=== PATIENT | female | born 1950 | race African-American/Black ===

== ENCOUNTER 2018-05-26 09:28 | Inpatient (IN) | payer OTHER, MEDICAID ==
[~2018-05-26] VITALS: Ht 167.6 cm; Wt 74.8 kg
[~2018-05-26 09:28] MED LIST: ALBU8.5H8 INH; DILT240C91 PO; FERR-57 PO; FLUT1DIS3 INH; GUAI5SYR PO; HYDR-4100 PO; IBUP-1969 PO; LEVO500T20 PO; MONT10TA22; OMEG100037 PO; OMEP40CA33 PO; PRED1TAB PO; TRAZ-123 PO; [UNRECOGNIZED DRUG - OTHER] PO
[2018-05-26 09:33] VITALS: BP_SYST 157
[2018-05-26] MEDS ORDERED: IPRATROPIUM BROM 0.5 MG/2.5 ML VIAL.NEB (ATROVENT) INH ONE (09:45)
[2018-05-26] MEDS ORDERED: LORazepam 2 MG/ML VIAL (FOR ER USE) IVP ONE (09:45)
[2018-05-26] MEDS ORDERED: ALBUTEROL SULFATE 0.083% 2.5 MG/3 ML VIAL.NEB INH ONE (09:45)
[2018-05-26] MEDS ORDERED: methylPREDNISolone SOD SUCC/PF 62.5 MG/ML VIAL IVP ONE (09:45)
[2018-05-26 10:13] LABS: BASOPHILS % (AUTO) 0.6 % (0.0-2.0); EOSINOPHILS # (AUTO) 0.3 K/uL (0.0-0.4); EOSINOPHILS % (AUTO) 3.6 % (0.0-4.0); HEMATOCRIT 41.5 % (36-48); HEMOGLOBIN 14.1 g/dL (12.0-16.0); LYMPHOCYTES # (AUTO) 1.8 K/uL (1.0-5.5); LYMPHOCYTES % (AUTO) 25.7 % (20.5-51.5); MEAN CORPUSCULAR HEMOGLOBIN 31 pg (27-31); MEAN CORPUSCULAR HGB CONC 34 % (32-36); MEAN CORPUSCULAR VOLUME 91 fL (79.0-98.0); MONOCYTES # (AUTO) 0.5 K/uL (0.0-1.0); MONOCYTES % (AUTO) 6.9 % (1.7-9.3); NEUTROPHILS # (AUTO) 4.6 K/uL (1.8-7.7); NEUTROPHILS % (AUTO) 63.2 % (40.0-70.0); PLATELET COUNT (AUTO) 460 K/uL (130-430); RED BLOOD CELL COUNT(AUTO) 4.55 MIL/uL (4.2-6.2); RED CELL DISTRIBUTION WIDTH 11.9 % (9.0-15.0); WHITE BLOOD COUNT (AUTO) 7.2 K/uL (4.8-10.8)
[2018-05-26 10:28] LABS: CALCIUM 9.4 mg/dL (8.4-11.0); CREATININE 0.63 mg/dL (0.55-1.30); POTASSIUM 3.3 mmol/L (3.5-5.1)
[2018-05-26 10:33] LABS: ALBUMIN 3.6 g/dL (3.4-4.8); TOTAL BILIRUBIN 0.5 mg/dL (0.0-1.0)
[2018-05-26] MEDS ORDERED: KETOROLAC TROMETHAMINE 15 MG VIAL IVP ONE (11:15)
[2018-05-26] MEDS ORDERED: cefTRIAXone 1 GM in D5W 50 ML IV ONE ×2 (11:15→13:00)
[2018-05-26] MEDS ORDERED: cefTRIAXone 1 GM VIAL ONE (11:33)
[2018-05-26] MEDS ORDERED: GLEC1TAB PO (11:42)
[2018-05-26 11:44] VITALS: BP_SYST 139
[2018-05-26] MEDS ORDERED: ALBUTEROL SULFATE 0.083% 2.5 MG/3 ML VIAL.NEB INH PRN (12:00)
[2018-05-26] MEDS ORDERED: IPRATROPIUM BROM 0.5 MG/2.5 ML VIAL.NEB (ATROVENT) INH PRN (12:00)
[2018-05-26 12:46] VITALS: BP_SYST 131
[2018-05-26] MEDS: IPRATROPIUM BROM 0.5 MG/2.5 ML VIAL.NEB (ATROVENT) INH SCH ×2 (13:25→19:27)
[2018-05-26] MEDS: ALBUTEROL SULFATE 0.083% 2.5 MG/3 ML VIAL.NEB INH SCH ×2 (13:25→19:27)
[2018-05-26] MEDS ORDERED: AZITHROMYCIN 500 MG in NS 250 ML IV ONE (14:00)
[2018-05-26] MEDS ORDERED: ACETAMINOPHEN 325 MG TABLET PO PRN (14:15)
[2018-05-26] MEDS: methylPREDNISolone SOD SUCC/PF 62.5 MG/ML VIAL IVP SCH ×2 (14:44→21:54)
[2018-05-26 16:55] VITALS: BP_SYST 132
[2018-05-26] MEDS ORDERED: ONDANSETRON HCL 4 MG/2 ML VIAL IVP PRN (19:30)
[2018-05-26] MEDS ORDERED: TEMAZEPAM 15 MG CAPSULE PO PRN (21:00)
[2018-05-26] MEDS: HYDROcodone/ACETAMIN 5-325 MG TAB (NORCO/ VICODIN) PO PRN (21:55)
[2018-05-26] MEDS: guaiFENesin/DEXTROMETHORPHAN 10 ML UDC PO PRN (21:56)
[2018-05-27 00:19] VITALS: BP_SYST 134
[2018-05-27] MEDS: IPRATROPIUM BROM 0.5 MG/2.5 ML VIAL.NEB (ATROVENT) INH SCH ×4 (01:03→20:01)
[2018-05-27] MEDS: ALBUTEROL SULFATE 0.083% 2.5 MG/3 ML VIAL.NEB INH SCH ×4 (01:03→20:01)
[2018-05-27] MEDS: guaiFENesin/DEXTROMETHORPHAN 10 ML UDC PO PRN ×3 (03:53→21:12)
[2018-05-27] MEDS: HYDROcodone/ACETAMIN 5-325 MG TAB (NORCO/ VICODIN) PO PRN ×2 (05:06→21:06)
[2018-05-27] MEDS: methylPREDNISolone SOD SUCC/PF 62.5 MG/ML VIAL IVP SCH ×3 (05:06→21:06)
[2018-05-27 08:00] VITALS: BP_SYST 137
[2018-05-27] MEDS: cefTRIAXone 1 GM in D5W 50 ML IV SCH (08:26)
[2018-05-27] MEDS: AZITHROMYCIN 500 MG in NS 250 ML IV SCH (09:38)
[2018-05-27] MEDS ORDERED: FLUTICASONE/VILANTEROL 1 EACH BLST.W.DEV INH ONE (10:00)
[2018-05-27] MEDS ORDERED: DILTIAZEM HCL 240 MG CAP.SR.24H PO ONE (10:00)
[2018-05-27] MEDS ORDERED: BENZONATATE 100 MG CAPSULE (TESSALON) PO ONE (10:00)
[2018-05-27 11:14] VITALS: BP_SYST 131
[2018-05-27 14:58] VITALS: BP_SYST 143
[2018-05-27] MEDS: MONTELUKAST 10 MG TABLET PO SCH (18:05)
[2018-05-27] MEDS: BENZONATATE 100 MG CAPSULE (TESSALON) PO SCH (21:05)
[2018-05-28] MEDS: IPRATROPIUM BROM 0.5 MG/2.5 ML VIAL.NEB (ATROVENT) INH SCH ×4 (00:15→19:32)
[2018-05-28] MEDS: ALBUTEROL SULFATE 0.083% 2.5 MG/3 ML VIAL.NEB INH SCH ×4 (00:15→19:32)
[2018-05-28 00:44] VITALS: BP_SYST 104
[2018-05-28] MEDS: guaiFENesin/DEXTROMETHORPHAN 10 ML UDC PO PRN (03:29)
[2018-05-28] MEDS: methylPREDNISolone SOD SUCC/PF 62.5 MG/ML VIAL IVP SCH (05:20)
[2018-05-28 08:04] VITALS: BP_SYST 129
[2018-05-28] MEDS: cefTRIAXone 1 GM in D5W 50 ML IV SCH (08:06)
[2018-05-28] MEDS: FLUTICASONE/VILANTEROL 1 EACH BLST.W.DEV INH SCH (08:06)
[2018-05-28] MEDS: HYDROcodone/ACETAMIN 5-325 MG TAB (NORCO/ VICODIN) PO PRN ×2 (08:07→14:13)
[2018-05-28] MEDS: BENZONATATE 100 MG CAPSULE (TESSALON) PO SCH ×3 (08:07→21:33)
[2018-05-28] MEDS: DILTIAZEM HCL 240 MG CAP.SR.24H PO SCH (08:08)
[2018-05-28] MEDS: AZITHROMYCIN 500 MG in NS 250 ML IV SCH (09:53)
[2018-05-28] MEDS: PROMETHAZINE 6.25 MG/ CODEINE 10 MG/ 5 ML PO PRN ×3 (11:47→20:16)
[2018-05-28] MEDS: methylPREDNISolone SOD SUCC 40 MG/ML VIAL IVP SCH ×2 (14:11→21:34)
[2018-05-28 14:23] VITALS: BP_SYST 109
[2018-05-28 15:57] VITALS: BP_SYST 144
[2018-05-28] MEDS: MONTELUKAST 10 MG TABLET PO SCH (18:11)
[2018-05-29 00:32] VITALS: BP_SYST 146
[2018-05-29] MEDS: ALBUTEROL SULFATE 0.083% 2.5 MG/3 ML VIAL.NEB INH SCH ×4 (00:32→20:04)
[2018-05-29] MEDS: IPRATROPIUM BROM 0.5 MG/2.5 ML VIAL.NEB (ATROVENT) INH SCH ×4 (00:32→20:04)
[2018-05-29] MEDS: PROMETHAZINE 6.25 MG/ CODEINE 10 MG/ 5 ML PO PRN ×2 (00:33→04:28)
[2018-05-29] MEDS: methylPREDNISolone SOD SUCC 40 MG/ML VIAL IVP SCH ×3 (05:37→21:11)
[2018-05-29 08:00] VITALS: BP_SYST 132
[2018-05-29] MEDS ORDERED: MAGNESIUM SULFATE 50 ML IV ONE (08:15)
[2018-05-29] MEDS: guaiFENesin ER 600 MG TAB PO SCH ×2 (08:25→21:11)
[2018-05-29] MEDS: HYDROcodone/ACETAMIN 5-325 MG TAB (NORCO/ VICODIN) PO PRN ×2 (08:25→16:57)
[2018-05-29] MEDS: DILTIAZEM HCL 240 MG CAP.SR.24H PO SCH (08:25)
[2018-05-29] MEDS: PREDNISONE 20 MG TABLET PO SCH (08:25)
[2018-05-29] MEDS: BENZONATATE 100 MG CAPSULE (TESSALON) PO SCH ×3 (08:26→21:11)
[2018-05-29] MEDS: FLUTICASONE/VILANTEROL 1 EACH BLST.W.DEV INH SCH (09:48)
[2018-05-29] MEDS: cefTRIAXone 1 GM in D5W 50 ML IV SCH (09:48)
[2018-05-29] MEDS: AZITHROMYCIN 500 MG in NS 250 ML IV SCH (10:51)
[2018-05-29 12:01] VITALS: BP_SYST 170
[2018-05-29 15:52] VITALS: BP_SYST 134
[2018-05-29] MEDS: MONTELUKAST 10 MG TABLET PO SCH (16:56)
[2018-05-29] MEDS: guaiFENesin/DEXTROMETHORPHAN 10 ML UDC PO PRN ×2 (16:56→23:52)
[2018-05-29 20:00] VITALS: BP_SYST 152
[2018-05-30 00:08] VITALS: BP_SYST 150
[2018-05-30] MEDS: IPRATROPIUM BROM 0.5 MG/2.5 ML VIAL.NEB (ATROVENT) INH SCH ×4 (01:43→19:24)
[2018-05-30] MEDS: ALBUTEROL SULFATE 0.083% 2.5 MG/3 ML VIAL.NEB INH SCH ×4 (01:44→19:24)
[2018-05-30] MEDS: methylPREDNISolone SOD SUCC 40 MG/ML VIAL IVP SCH ×3 (06:26→22:00)
[2018-05-30] MEDS: guaiFENesin/DEXTROMETHORPHAN 10 ML UDC PO PRN ×3 (06:30→23:42)
[2018-05-30] MEDS: HYDROcodone/ACETAMIN 5-325 MG TAB (NORCO/ VICODIN) PO PRN ×2 (06:31→20:17)
[2018-05-30 07:30] VITALS: BP_SYST 151
[2018-05-30] MEDS: BENZONATATE 100 MG CAPSULE (TESSALON) PO SCH ×3 (08:13→20:16)
[2018-05-30] MEDS: cefTRIAXone 1 GM in D5W 50 ML IV SCH (08:14)
[2018-05-30] MEDS: DILTIAZEM HCL 240 MG CAP.SR.24H PO SCH (08:14)
[2018-05-30] MEDS: PREDNISONE 20 MG TABLET PO SCH (08:15)
[2018-05-30] MEDS: guaiFENesin ER 600 MG TAB PO SCH ×2 (08:15→20:16)
[2018-05-30] MEDS: FLUTICASONE/VILANTEROL 1 EACH BLST.W.DEV INH SCH (08:15)
[2018-05-30] MEDS: AZITHROMYCIN 500 MG in NS 250 ML IV SCH (09:26)
[2018-05-30 12:15] VITALS: BP_SYST 159
[2018-05-30] MEDS ORDERED: OMEPRAZOLE 20 MG CAPSULE.DR (PriLOSEC) ONE (14:57)
[2018-05-30 15:03] VITALS: BP_SYST 142
[2018-05-30] MEDS ORDERED: OMEPRAZOLE 20 MG CAPSULE.DR (PriLOSEC) PO ONE (15:45)
[2018-05-30] MEDS: MONTELUKAST 10 MG TABLET PO SCH (17:18)
[2018-05-30 20:00] VITALS: BP_SYST 139
[2018-05-31 00:09] VITALS: BP_SYST 141
[2018-05-31] MEDS: ALBUTEROL SULFATE 0.083% 2.5 MG/3 ML VIAL.NEB INH SCH ×2 (01:00→07:20)
[2018-05-31] MEDS: IPRATROPIUM BROM 0.5 MG/2.5 ML VIAL.NEB (ATROVENT) INH SCH ×2 (01:00→07:24)
[2018-05-31] MEDS: HYDROcodone/ACETAMIN 5-325 MG TAB (NORCO/ VICODIN) PO PRN ×2 (02:50→09:23)
[2018-05-31] MEDS: methylPREDNISolone SOD SUCC 40 MG/ML VIAL IVP SCH ×2 (06:35→13:10)
[2018-05-31 07:00] LABS: MONOCYTES # (AUTO) 0.5 K/uL (0.0-1.0)
[2018-05-31 07:13] LABS: BASOPHILS # (AUTO) 0.1 K/uL (0.0-0.2); BASOPHILS % (AUTO) 0.8 % (0.0-2.0); EOSINOPHILS % (AUTO) 0.1 % (0.0-4.0); HEMATOCRIT 35.8 % (36-48); HEMOGLOBIN 12.4 g/dL (12.0-16.0); LYMPHOCYTES # (AUTO) 0.6 K/uL (1.0-5.5); LYMPHOCYTES % (AUTO) 4.8 % (20.5-51.5); MEAN CORPUSCULAR HEMOGLOBIN 32 pg (27-31); MEAN CORPUSCULAR HGB CONC 35 % (32-36); MEAN CORPUSCULAR VOLUME 92 fL (79.0-98.0); MONOCYTES % (AUTO) 3.9 % (1.7-9.3); NEUTROPHILS # (AUTO) 10.6 K/uL (1.8-7.7); NEUTROPHILS % (AUTO) 90.4 % (40.0-70.0); PLATELET COUNT (AUTO) 383 K/uL (130-430); RED CELL DISTRIBUTION WIDTH 11.8 % (9.0-15.0); WHITE BLOOD COUNT (AUTO) 11.8 K/uL (4.8-10.8)
[2018-05-31 07:15] LABS: CALCIUM 8.3 mg/dL (8.4-11.0); CREATININE 0.64 mg/dL (0.55-1.30); POTASSIUM 3.6 mmol/L (3.5-5.1)
[2018-05-31 08:17] VITALS: BP_SYST 140
[2018-05-31] MEDS ORDERED: OMEPRAZOLE 20 MG CAPSULE.DR (PriLOSEC) PO SCH (09:00)
[2018-05-31] MEDS: BENZONATATE 100 MG CAPSULE (TESSALON) PO SCH (09:21)
[2018-05-31] MEDS: guaiFENesin/DEXTROMETHORPHAN 10 ML UDC PO PRN (09:22)
[2018-05-31] MEDS: PREDNISONE 20 MG TABLET PO SCH (09:23)
[2018-05-31] MEDS: guaiFENesin ER 600 MG TAB PO SCH (09:23)
[2018-05-31] MEDS: DILTIAZEM HCL 240 MG CAP.SR.24H PO SCH (09:23)
[2018-05-31] MEDS: cefTRIAXone 1 GM in D5W 50 ML IV SCH (09:23)
[2018-05-31] MEDS: FLUTICASONE/VILANTEROL 1 EACH BLST.W.DEV INH SCH (09:25)
[2018-05-31] MEDS ORDERED: AZIT500T2 PO (10:24)
[2018-05-31] MEDS ORDERED: MED4 PO (10:25)
[2018-05-31 12:00] VITALS: BP_SYST 147
[2018-05-31 12:24] VITALS: BP_SYST 151
== END 2018-05-31 14:10 | disposition home or self-care (01) | DRG 192 ==
LOC: SED 09:28 → STU 11:27
PROVIDERS: ADMIT Internal Medicine Hospice and Palliative Medicine; ATTEND Internal Medicine Hospice and Palliative Medicine
DX: J44.1 Chronic obstructive pulmonary disease with (acute) exacerbation (principal); I10 Essential (primary) hypertension; G89.29 Other chronic pain; E66.9 Obesity, unspecified; G47.00 Insomnia, unspecified; M19.90 Unspecified osteoarthritis, unspecified site; F32.9 Major depressive disorder, single episode, unspecified; G47.30 Sleep apnea, unspecified; E11.9 Type 2 diabetes mellitus without complications; J98.01 Acute bronchospasm; Z86.73 Personal history of transient ischemic attack (TIA), and cerebral infarction without residual deficits; Z87.891 Personal history of nicotine dependence; Z90.49 Acquired absence of other specified parts of digestive tract; Z68.26 Body mass index [BMI] 26.0-26.9, adult; Z79.4 Long term (current) use of insulin
CPT/HCPCS: 36415; 71045; 80048; 80053; 83605; 84484; 85025; 87040-TC; 87086; 93005; 94010; 94640; 94760; 96365; 96375; 99285; J0456; J0696; J1030; J1885; J2060; J2930; J3475; J7050; J7060; J7512; J7613

== ENCOUNTER 2019-07-24 14:50 | Emergency (ER) | payer MEDICARE, MEDICAID ==
[~2019-07-24] VITALS: Ht 162.6 cm; Wt 69.4 kg
[~2019-07-24 14:50] MED LIST changes: +AZIT500T2 PO; -LEVO500T20 PO; +MED4 PO; -PRED1TAB PO; -TRAZ-123 PO; +TRAZ-250 PO; -[UNRECOGNIZED DRUG - OTHER] PO
[2019-07-24 15:10] VITALS: BP_SYST 116
== END 2019-07-24 16:44 | disposition left against medical advice (07) ==
LOC: SED 14:50
DX: T14.8XXA Other injury of unspecified body region, initial encounter (principal); Z53.21 Procedure and treatment not carried out due to patient leaving prior to being seen by health care provider; X58.XXXA Exposure to other specified factors, initial encounter; Y93.E1 Activity, personal bathing and showering; Y92.091 Bathroom in other non-institutional residence as the place of occurrence of the external cause; Y99.8 Other external cause status